=== PATIENT | male | born 1970 | race Caucasian/White ===

== ENCOUNTER 2018-08-24 10:03 | Outpatient (REF) | payer OTHER, SELFPAY ==
[2018-08-24 21:41] LABS: ALT 57 U/L (12-78); AST 23 U/L (15-37); Alkaline Phosphatase 58 U/L (46-116); Anion Gap 9.5 mmol/L (3-11); BUN 20 mg/dL (7-18); Bilirubin, Total 0.4 mg/dL (0.2-1.0); CO2 25.5 mmol/L (21.0-32.0); CREATININE 1.06 mg/dL (0.70-1.30); Calcium 9.3 mg/dL (8.5-10.1); Chloride 101 mmol/L (98-107); Cholesterol 187 mg/dL (50-200); Glucose 114 mg/dL (70-100); HDL Cholesterol 39 mg/dL (40-60); LDL CHOLESTEROL 124 mg/dL (<100); Potassium 5.1 mmol/L (3.5-5.1); Sodium 136 mmol/L (136-145); Total Protein 7.6 g/dL (6.4-8.2); Triglyceride 133 mg/dL (30-150)
== END 2018-08-24 10:23 ==
LOC: NCHCN 10:03
PROVIDERS: PCP Family Medicine; Visit Provider Physician Assistant Medical
DX: E78.5 Hyperlipidemia, unspecified (principal); I10 Essential (primary) hypertension
CPT/HCPCS: 80053; 80061; 83721

== ENCOUNTER 2018-11-23 16:04 | Outpatient (CLI) | payer OTHER, SELFPAY ==
[2018-11-23 16:54] LABS: Abs Immature Grans 0.02 k/cumm (0.0-0.09); Absolute Basophil Count 0.03 k/cumm (0.0-0.2); Absolute Eosinophil Count 0.17 k/cumm (0.0-0.7); Absolute Lymphocyte Count 1.87 k/cumm (1.2-3.4); Absolute Monocyte Count 0.46 k/cumm (0.11-0.7); Absolute Neutrophil Count 3.99 k/cumm (1.2-6.7); Basophils % 0.5; Eosinophils % 2.6; HCT 41.2 % (40.0-50.0); Immature Grans % 0.3; Lymphocytes % 28.6; Mean Corpuscular Volume 88.2 fL (80-95); Mean Platelet Volume 11.1 fL (8.0-11.0); Platelet Count 191 x1000/uL (130-400); RBC 4.67 m/cumm (4.50-6.00); RBC Distribution Width 13.4 % (11.8-14.1); White Blood Cell Count 6.54 k/cumm (4.4-10.8)
[2018-11-23 18:07] LABS: Anion Gap 8.6 mmol/L (3-11); BUN 22 mg/dL (7-18); CO2 27.4 mmol/L (21.0-32.0); CREATININE 1.18 mg/dL (0.70-1.30); Calcium 9.2 mg/dL (8.5-10.1); Chloride 100 mmol/L (98-107); Glucose 93 mg/dL (70-100); Potassium 4.4 mmol/L (3.5-5.1); Sodium 136 mmol/L (136-145)
== END 2018-11-23 16:24 ==
PROVIDERS: PCP Family Medicine; Visit Provider Physician Assistant Medical
DX: R73.01 Impaired fasting glucose (principal); I10 Essential (primary) hypertension
CPT/HCPCS: 36415; 80048; 83036; 83735; 85025

== ENCOUNTER 2019-11-16 15:14 | Outpatient (CLI) | payer OTHER, SELFPAY ==
[2019-11-16 15:39] LABS: Abs Immature Grans 0.02 k/cumm (0.0-0.09); Absolute Basophil Count 0.03 k/cumm (0.0-0.2); Absolute Eosinophil Count 0.15 k/cumm (0.0-0.7); Absolute Lymphocyte Count 2.09 k/cumm (1.2-3.4); Absolute Monocyte Count 0.52 k/cumm (0.11-0.7); Basophils % 0.5; Eosinophils % 2.3; HCT 40.5 % (40.0-50.0); Immature Grans % 0.3 %; Lymphocytes % 32.1; Mean Corp. HGB Concentration 34.6 g/dL (32.0-36.0); Mean Corpuscular Hemoglobin 30.6 pg (27.0-33.0); Mean Corpuscular Volume 88.4 fL (80-95); Mean Platelet Volume 10.2 fL (8.0-11.0); Neutrophils % 56.8; Platelet Count 242 x1000/uL (130-400); RBC 4.58 m/cumm (4.50-6.00); RBC Distribution Width 13.6 % (11.8-14.1); White Blood Cell Count 6.51 k/cumm (4.4-10.8)
[2019-11-16 17:54] LABS: ALT 49 U/L (16-63); AST 26 U/L (15-37); Albumin 4.1 g/dL (3.4-5.0); Alkaline Phosphatase 57 U/L (46-116); Bilirubin, Direct 0.08 mg/dL (0.00-0.20); Bilirubin, Total 0.3 mg/dL (0.2-1.0); Total Protein 7.3 g/dL (6.4-8.2)
== END 2019-11-16 15:34 ==
PROVIDERS: PCP Family Medicine; Visit Provider Podiatrist Foot & Ankle Surgery
DX: B35.1 Tinea unguium (principal)
CPT/HCPCS: 36415; 80076; 85025

== ENCOUNTER 2021-01-11 03:20 | Outpatient (CLI) | payer BC, SELFPAY ==
[2021-01-11 15:40] LABS: Abs Immature Grans 0.02 10^3/uL (0.0-0.06); Absolute Basophil Count 0.03 10^3/uL (0.0-0.2); Absolute Eosinophil Count 0.16 10^3/uL (0.0-0.7); Absolute Lymphocyte Count 2.15 10^3/uL (1.2-3.4); Absolute Neutrophil Count 4.14 10^3/uL (1.2-6.7); Basophils % 0.4; Eosinophils % 2.3; HCT 41.3 % (40.0-50.0); HGB 14.1 g/dL (13.5-17.5); Immature Grans % 0.3; Lymphocytes % 30.7; MCH 30.1 pg (27.0-33.0); MCHC 34.1 % (32.0-36.0); MCV 88.2 fL (80-95); MPV 10.5 fL (8.0-11.0); Monocytes % 7.1; Neutrophils % 59.2; Nucleated RBC 0 %; Platelet Count 225 10^3/uL (130-400); RBC 4.68 10^6/uL (4.36-5.78); RDW 12.7 % (11.8-14.1); RDW-SD 40.9 fL
[2021-01-11 16:28] LABS: Hemoglobin A1C 6.6 % (<5.7)
[2021-01-11 16:34] LABS: ALT 65 U/L (16-63); AST 22 U/L (15-37); Albumin 4.1 g/dL (3.4-5.0); Alkaline Phosphatase 62 U/L (46-116); Anion Gap 9.4 mmol/L (3-11); BUN 19 mg/dL (7-18); Bilirubin, Total 0.3 mg/dL (0.2-1.0); CO2 26.6 mmol/L (21.0-32.0); CREATININE 1.1 mg/dL (0.70-1.30); Calcium 8.7 mg/dL (8.5-10.1); Chloride 104 mmol/L (98-107); Cholesterol 213 mg/dL (<200); Glucose 135 mg/dL (74-106); HDL Cholesterol 29 mg/dL (40-60); Potassium 4.1 mmol/L (3.5-5.1); Sodium 140 mmol/L (136-145); Total Protein 7.3 g/dL (6.4-8.2); Triglyceride 569 mg/dL (<150)
[2021-01-11 21:31] LABS: LDL CHOLESTEROL 117 mg/dL (<100)
== END 2021-01-11 03:21 | disposition home or self-care (01) ==
LOC: LBO 03:20
PROVIDERS: PCP Physician Assistant Medical; Visit Provider Physician Assistant Medical
DX: Z00.00 Encounter for general adult medical examination without abnormal findings (principal); R73.01 Impaired fasting glucose; E78.5 Hyperlipidemia, unspecified; I10 Essential (primary) hypertension
CPT/HCPCS: 36415; 80053; 80061; 83721; 83036; 85025

== ENCOUNTER 2021-01-12 02:33 | Outpatient (CLI) | payer BC, SELFPAY ==
[2021-01-12 10:00] LABS: Source Nasal/Nares
[2021-01-12 16:48] LABS: COVID-19 PCR Negative (Negative)
== END 2021-01-12 02:34 | disposition home or self-care (01) ==
LOC: LBO 02:33
PROVIDERS: PCP Physician Assistant Medical; Visit Provider Surgery
DX: Z20.822 Contact with and (suspected) exposure to COVID-19 (principal); Z01.818 Encounter for other preprocedural examination
CPT/HCPCS: 87635

== ENCOUNTER 2021-01-15 10:01 | Day surgery (SDC) | payer BC, SELFPAY ==
--- NOTE | 2021-01-15 06:55 | COLE_ITS ---
Date of service: 01/15/21 Time of Service: 11:38 Colonoscopy Report Date of procedure: 01/15/21 Pre-op diagnosis general: Colon Cancer Screening Procedure: Colonoscopy Surgeon: Adalgisa Miller Anesthesia Type: General:No Airway (ASA /) Complications: None Disposition: same day Indications: The patient is here for Colonoscopy pre-op. He has no family history of colon cancer. He has not had any bowel habit changes. -Discussed colonoscopy bowel prep as well as the procedure. Discussed possible c omplications of the procedure to include bleeding, pain, perforation, missed small lesion/polyp, sore throat, aspiration and adverse reaction to the medications. Questions were answered to patient?s satisfaction. No guarantees were implied or given. Prep: Miralax/Dulcolax Procedure Start Time: :38 Procedure End Time: :53 Retraction Time: 10 minutes Findings: Normal colon Procedure Description: After informed consent was obtained the patient was taken to the procedure room and placed in a left decubitous position. Monitors were applied and a time out was done. The patients name, date of , procedure, allergies to medications and metal in their body was reviewed. The patient was then sedated. Once sedated and comfortable a rectal exam was done. External exam was normal. Internal exam revealed a normal sphincter tone and no palpable masses. The prostate felt smooth and normal in size. The scope was then introduced and retro-flexed. No internal hemorrhoids, polyps or masses were identified on retro-flexion. The scope was then advanced to the cecum without difficulty. The ileocecal vlave and appendiceal orifice were identified. The prep was adequate. The scope was then slowly retracted over 10 minutes back into the rectum. There were no polyps and no diverticulosis. The scope was removed and the patient was woken up and taken back to Same day surgery in stable condition. The patient tolerated the procedure well and there were no immediate complications. Follow up: The patient should follow up in 10 years unless they develop changes in bowel habits or other new gastrointestinal complaints.
--- NOTE | 2021-01-15 06:56 | W.PM.DSUDISC ---
Discharge Plan Disposition Patient Disposition: HOME Condition: Good Discharge Details Reason For Visit: Colonoscopy Attending Provider: Adalgisa Miller Primary Care Provider: Aime Rivas Home Meds and New Rx's Prescriptions: Continued lisinopril 20 mg tablet 20 mg PO DAILY RF: 0 ferrous gluconate 324 mg (36 mg iron) tablet 324 mg PO DAILY RF: 0 ibuprofen 800 mg tablet 800 mg PO TID RF: 0 acetaminophen 500 mg capsule 500 mg PO Q6H PRNRF: 0 terbinafine HCl 250 mg tablet 250 mg PO DAILY RF: 0 aspirin [Aspir-81] 81 MG tablet,delayed release (DR/EC) 81 mg PO DAILY RF: 0 simvastatin 40 MG tablet 40 mg PO DAILY RF: 0 Discontinued bisacodyl [Dulcolax (bisacodyl)] 5 mg tablet,delayed release (DR/EC) 5 mg PO ONCE Qty: 4 RF: 0 polyethylene glycol 3350 17 gram/dose powder 238 g PO ONCE Qty: 238 RF: 0 Discharge Instructions Additional Instructions: Findings: Normal colon Follow up: 10 years Please call if you develop: fevers >101.5 Nausea or Vomiting Abdominal pain that is not transient DAY SURGERY UNIT POST ENDOSCOPY INSTRUCTIONS 1. Because there will be medication in your system for the next 24 hours, you may feel a little sleepy. Your coordination will be affected. Therefore: a. Do not drive or operate dangerous equipment for 24 hours. b. Do not drink alcohol beverages for 24 hours (not even beer). c. Plan to go home and rest for the day. 2. Generally there are no restrictions on your activity after a day or so has gone by, but you may feel a bit fatigued for a few days. 3 After you arrive home you may have a light meal and return to a normal diet as you can tolerate it without feeling sick to your stomach. 4. After surgery, you may feel pain or discomfort. This should be only transient, but if it persists please contact your doctor. 5. If there are any questions regarding the findings of your procedure, please feel free to contact your doctor. 6. If you are unable to contact your doctor with a problem, contact the hospital at [phone]. 7. Continue all your regular medications unless directed otherwise. I understand the above instructions and have no questions. Signature of Patient or Responsible Adult Escort Date/Time Name of Responsible Adult Escort Signature of Nurse Date/Time Activity:: Activity as Tolerated Diet:: As Tolerated Discharge Orders Discharge Orders: Discharge Order (Routine); Ordered 01/15/21 Ordered By: Adalgisa Miller
[2021-01-15 10:10] VITALS: BP 151/88; PULSE 93; RESP 18; TEMP 36.2; O2SAT 98
[2021-01-15] MEDS: Lactated Ringers 1,000 ML 80 ML IV (10:32)
[2021-01-15 12:29] VITALS: BP 112/71; PULSE 78; RESP 16; TEMP 36.5; O2SAT 96
== END 2021-01-15 12:55 | disposition home or self-care (01) ==
LOC: SUR 10:01
PROVIDERS: PCP Physician Assistant Medical; Visit Provider Surgery
PROC: 0DJD8ZZ Inspection of Lower Intestinal Tract, Via Natural or Artificial Opening Endoscopic (ICD-10-PCS; CPT 45378; principal; 2021-01-15 11:15)
DX: Z12.11 Encounter for screening for malignant neoplasm of colon (principal); I10 Essential (primary) hypertension
CPT/HCPCS: 45378; J1100; J2001; J2405; J2704

== ENCOUNTER 2021-10-09 11:19 | Outpatient (CLI) | payer BC, OTHER, SELFPAY ==
--- NOTE | 2021-10-09 | DI.RAD_ITS ---
Exam(s) XR ANKLE RT COMPLETE EXAM: XR ANKLE RT COMPLETE CLINICAL HISTORY: ANKLE PAIN RT, M25.571 TECHNIQUE: COMPARISON: No exams were available for comparison FINDINGS: Three views were obtained. The ankle mortise is well maintained. No significant bony or soft tissue abnormality seen. IMPRESSION: RADIATION DOSE DELIVERED: Total DLP
== END 2021-10-09 11:39 ==
PROVIDERS: PCP Physician Assistant Medical; Visit Provider Physician Assistant Medical
DX: M25.571 Pain in right ankle and joints of right foot (principal)
CPT/HCPCS: 73610

== ENCOUNTER 2022-06-05 16:56 | Outpatient (REF) | payer OTHER, SELFPAY ==
[2022-06-05 20:38] LABS: ALT 92 U/L (16-63); AST 39 U/L (15-37); Albumin 4.2 g/dL (3.4-5.0); Alkaline Phosphatase 59 U/L (46-116); Anion Gap 12.3 mmol/L (3-11); BUN 17 mg/dL (7-18); Bilirubin, Total 0.4 mg/dL (0.2-1.0); CO2 24.7 mmol/L (21.0-32.0); Calcium 9.3 mg/dL (8.5-10.1); Chloride 101 mmol/L (98-107); Cholesterol 199 mg/dL (<200); Glucose 112 mg/dL (74-106); HDL Cholesterol 27 mg/dL (40-60); Potassium 4.2 mmol/L (3.5-5.1); Sodium 138 mmol/L (136-145); TSH (W/Ref FT4) 1.73 uIU/mL (0.36-3.74); Total Protein 8.3 g/dL (6.4-8.2); Triglyceride 401 mg/dL (<150)
[2022-06-05 21:08] LABS: LDL CHOLESTEROL 108 mg/dL (<100)
[2022-06-05 21:49] LABS: Hemoglobin A1C 7.1 % (<5.7)
[2022-06-06 20:31] LABS: PSA, Screening 0.2 ng/mL (<=3.5)
== END 2022-06-05 16:57 | disposition home or self-care (01) ==
LOC: NCHCN 16:56
PROVIDERS: PCP Physician Assistant Medical; Visit Provider Physician Assistant Medical
DX: E11.9 Type 2 diabetes mellitus without complications (principal); Z00.00 Encounter for general adult medical examination without abnormal findings; E66.9 Obesity, unspecified; Z12.5 Encounter for screening for malignant neoplasm of prostate; E78.5 Hyperlipidemia, unspecified; I10 Essential (primary) hypertension
CPT/HCPCS: 80053; 80061; 83721; 84153; 83036; 84443

== ENCOUNTER 2022-11-20 16:37 | Outpatient (REF) | payer OTHER, SELFPAY ==
[2022-11-20 20:12] LABS: HCT 43.8 % (40.0-50.0); HGB 14.7 g/dL (13.5-17.5); MCH 29.5 pg (27.0-33.0); MCHC 33.6 % (32.0-36.0); MCV 88 fL (80-95); MPV 10.7 fL (8.0-11.0); Platelet Count 239 10^3/uL (130-400); RBC 4.99 10^6/uL (4.36-5.78); RDW 13.2 % (11.8-14.1); RDW-SD 42.6 fL; WBC 6.62 10^3/uL (4.4-10.8)
[2022-11-20 20:18] LABS: ALT 65 U/L (16-63); AST 36 U/L (15-37); Albumin 4.3 g/dL (3.4-5.0); Alkaline Phosphatase 61 U/L (46-116); Anion Gap 9.8 mmol/L (3-11); BUN 13 mg/dL (7-18); Bilirubin, Total 0.5 mg/dL (0.2-1.0); CO2 26.2 mmol/L (21.0-32.0); Calcium 9.4 mg/dL (8.5-10.1); Chloride 102 mmol/L (98-107); Estimated GFR 90.56 (mL/min/1.73m2); Glucose 101 mg/dL (74-106); Potassium 4.3 mmol/L (3.5-5.1); Sodium 138 mmol/L (136-145); Total Protein 7.9 g/dL (6.4-8.2)
[2022-11-20 20:39] LABS: Hemoglobin A1C 5.9 % (<5.7)
== END 2022-11-20 16:38 | disposition home or self-care (01) ==
LOC: NCHCN 16:37
PROVIDERS: PCP Physician Assistant Medical; Visit Provider Physician Assistant Medical
DX: E11.9 Type 2 diabetes mellitus without complications (principal); R79.89 Other specified abnormal findings of blood chemistry
CPT/HCPCS: 80053; 85027; 83036

== ENCOUNTER 2023-01-12 09:43 | Emergency (ER) | payer OTHER, SELFPAY ==
[2023-01-12 09:51] VITALS: BP 163/97; PULSE 92; RESP 18; TEMP 37.2; O2SAT 98
--- NOTE | 2023-01-12 10:00 | DI.RAD_ITS ---
Exam(s) XR KNEE LT 4V AP,LAT,LUCILA,PAT EXAM: XR KNEE LT 4V AP,LAT,LUCILA,PAT CLINICAL HISTORY: hit anterior knee with piece of wood, r/o fx. TECHNIQUE: 2D digital imaging was performed. COMPARISON: No exams were available for comparison FINDINGS: Four views: There is mild anterior soft tissue swelling. No evidence of acute fracture but there is a joint effusion noted. No osseous lesions nor joint spac e narrowing. No osteochondral defects. Minimal degenerative changes. No radiopaque foreign body. IMPRESSION: Mild anterior soft tissue swelling. No significant osseous findings. DATA REPOSITORY: RADIATION DOSE DELIVERED:
--- NOTE | 2023-01-12 10:14 | W.ED.GENAD ---
Discharge Plan Disposition Patient Disposition: Home Condition: Stable Discharge Details Clinical Impression: Contusion of left knee Primary Care Provider: Aime Rivas ED Provider: Chloe Munguia Home Meds and New Rx's Prescriptions: Continued metformin 500 mg tablet 500 mg PO DAILY lisinopril 20 mg tablet 20 mg PO DAILY Patient Comments: not taking ibuprofen 800 mg tablet 800 mg PO TID acetaminophen 500 mg capsule 500 mg PO Q6H PRN terbinafine HCl 250 mg tablet 250 mg PO DAILY Patient Comments: not taking Alive Men's 50 Plus MV (vit K) 240-120-300 mcg tablet 1 tab PO DAILY ferrous gluconate 225 mg (27 mg iron) tablet 225 mg PO DAILY Patient Comments: not taking losartan [Cozaar] 25 mg tablet 25 mg PO DAILY benzonatate 100 mg capsule 100 mg PO BID-TID PRN Patient Comments: not taking Ozempic 0.25 mg or 0.5 mg(2 mg/1.5 mL) pen injector 0.5 mg subcut QWEEK aspirin [Aspir-81] 81 MG tablet,delayed release (DR/EC) 81 mg PO DAILY simvastatin 40 MG tablet 40 mg PO DAILY Discharge Instructions Instructions: Contusion in Adults (ED) Additional Instructions: Your x-ray today showed soft tissue swelling but no evidence of fracture or dislocation. Rest, ice, and elevate the affected area as much as possible. Apply ice to the affected area several times daily for 20 minutes at a time. Wear the Evangelist wrap as much as possible to help with compression and pain. Alternate tylenol and motrin as needed and directed for pain. Follow-up with your primary care doctor in 1 week as needed and for referral to orthopedics if your symptoms do not improve or worsen. Return immediately to the emergency department if you develop any worsening or new concerning symptoms. Stand Alone Forms: Work Release Referrals: Orlin Moreira MD [ [facility]FF PHYSICIAN] - Discharge Data Discharge Physician: Chloe Munguia Medical Decision Making 52-year-old male with a history of obesity, hypertension, hyperlipidemia, diabetes and obstructive sleep apnea presents the ED with a complaint of left knee pain after hit directly with a piece of wood to his left anterior knee yesterday while standing. Left knee appears normal to inspection without obvious edema, ecchymosis, erythema or deformity. He has some tenderness to palpation to his left anterior medial inferior knee overlying medial proximal tibia. There is no obvious ligamentous laxity. He has neurovascular intact. Will refer for left knee x-ray. Declines Tylenol here. X-ray notes anterior soft tissue swelling but no evidence of fracture or dislocation. Patient requested a work note. Left knee Evangelist wrap applied. Advised on the importance of rest, ice and elevation. Given orthopedic follow-up information if needed. Usual and customary return precautions given prior to discharge. Medical Records Medical records reviewed: Yes I reviewed the patient's medical records. Imaging Data Radiologic Study: Radiologist's impression: XR Left Knee Exam date and time: 01/12/2023 10:43 AM Age: 52 years old Clinical indication: Injury or trauma; Other: Hit anterior knee with piece of wood, R/O FX; Blunt trauma; Left TECHNIQUE: Imaging protocol: Radiologic exam of the left knee. Views: 4 or more views. AP, tunnel and lateral images with supplemental patellar femoral image of the left knee. COMPARISON: No relevant prior studies available. FINDINGS: Bones/joints: The bones are well mineralized. Examination negative for fracture or dislocation. Tiny spurs in the lateral portion of the medial compartment. Soft tissues: Mild anterior soft tissue swelling. No joint effusion. IMPRESSION: Nonspecific anterior soft tissue swelling.? No fracture or dislocation. HPI General Mode of arrival: ambulatory. Date/Time Provider Initiated Documentation: 01/12/23 09:59. Limitations to Documentation: no limitations. Information obtained by: patient. HPI Narrative: Patient is a 52-year-old male with a history of obesity, hypertension, hyperlipidemia, diabetes, obstructive sleep apnea who presents for complaints of left knee pain after hit with a piece of wood accidentally yesterday. Patient states a 4 x 4 piece of wood that was hit directly against his left anterior knee while standing. Patient states the pain is worse with walking or weightbearing. Patient took 800 mg of ibuprofen 2 hours ago with some relief. He denies any pain in his left hip, ankle or foot. Related Data Home Medications Medication Instructions Recorded Confirmed aspirin 81 mg tablet,delayed 81 mg PO DAILY 09/01/14 01/12/23 release (Aspir-) simvastatin 40 mg tablet 40 mg PO DAILY 09/01/14 01/12/23 acetaminophen 500 mg capsule 500 mg PO Q6H PRN 07/06/20 01/12/23 ibuprofen 800 mg tablet 800 mg PO TID 07/06/20 01/12/23 lisinopril 20 mg tablet 20 mg PO DAILY 07/06/20 05/30/22 terbinafine HCl 250 mg tablet 250 mg PO DAILY 12/01/20 05/30/22 metformin 500 mg tablet 500 mg PO DAILY 07/24/21 01/12/23 benzonatate 100 mg capsule 100 mg PO BID-TID PRN 06/28/22 ferrous gluconate 225 mg (27 mg 225 mg PO DAILY 06/28/22 iron) tablet losartan 25 mg tablet (Cozaar) 25 mg PO DAILY 06/28/22 01/12/23 podbvcbf-husx-gejwz acid 240 1 tab PO DAILY 06/28/22 01/12/23 mcg-vit K 120 zdb-bxrzln-tllm 293 tablet (Alive Men's 50 Plus Multivit (vit K)) semaglutide 0.25 mg or 0.5 mg (2 0.5 mg subcut QWEEK 06/28/22 01/12/23 mg/1.5 mL) subcutaneous pen injector (Ozempic) Allergies Allergy/AdvReac Type Severity Reaction Status Date / Time No Known Allergies Allergy Unverified 01/12/23 09:55 General Stated Complaint: Orthopedic TEE: 4 Review of Systems All systems reviewed & are unremarkable except as noted in HPI and below Constitutional Constitutional: Reports as per HPI, Denies chills and Denies fever(s) Eyes Eyes: Denies blurry vision ENT Ears, Nose, Mouth, and Throat: Denies dizziness, Denies sore throat and Denies throat swelling Cardiovascular Cardiovascular: Denies chest pain and Denies dyspnea Respiratory Respiratory: Denies cough and Denies dyspnea Gastrointestinal Gastrointestinal: Denies abdominal pain, Denies diarrhea and Denies vomiting Genitourinary Genitourinary: Denies hematuria and Denies dysuria Musculoskeletal Musculoskeletal: Denies back pain and Denies numbness Comments: left knee pain Integumentary/Breasts Skin/Breast: Denies lesions and Denies rash Neurologic Neurologic: Denies dizziness, Denies localized weakness and Denies numbness Allergic/Immunologic Allergic/Immunologic: Denies throat swelling PFSH All Active Problems (Updated 01/12/23 @ 11:25 by Chloe Munguia DO) Contusion of left knee (Acute) COVID-19 (Acute) Skin tag (Acute) Medical History Cutaneous horn Hyperhidrosis Hyperlipidemia Hypertension Impaired fasting glucose ALEA (obstructive sleep apnea) Surgical History History of arthroscopic knee surgery Normal colonoscopy (~01/2021) Social History Smoking/Tobacco Use Status: Never Smoking risk assessment performed?: Yes Alcohol Intake: current Alcohol Intake frequency: a few times a week Alcohol type: beer Drug use: Never Substance use type: does not use Current gender identity: male Do you feel safe at home: Yes Do you feel safe in your relationship?: Yes Exam Const General: cooperative and no acute distress Orientation: alert, awake and oriented x3 HENMT Head: normal to inspection Mouth: oral mucosae normal Eyes General: appearance normal, both eyes and all related structures Neck Neck: normal visual inspection Resp Effort & Inspection: normal respiratory effort and able to speak in complete sentences Cardio Rate: regular rate Skin General skin exam: no rashes or lesions noted Neuro General: patient alert, patient awake and patient oriented x3 Motor: muscle tone normal throughout Extrem Knee images: 1. Tenderness to palpation to anterior medial knee just inferior to patella/medial proximal tibial aspect. There is no evidence of significant edema, ecchymosis. Other: Negative anterior and posterior drawer test. No pain with valgus or varus stress. Negative Darrel's test. No deformity noted. Left DP/PT pulses intact. Psych Appearance: grossly normal Affect: normal affect Course Vital Signs Vital signs: Vital Signs Temperature 98.9 F 01/12/23 09:51 Pulse 92 H 01/12/23 09:51 Respiratory Rate 18 01/12/23 09:51 Blood Pressure 163/97 H 01/12/23 09:51 Pulse Oximetry 98 01/12/23 09:51 Temperature 98.9 F 01/12/23 09:51 Temperature Source Rectal 01/12/23 09:51 Pulse 92 H 01/12/23 09:51 Respiratory Rate 18 01/12/23 09:51 Respiratory Effort Normal, Non-Labored 01/12/23 09:55 Blood Pressure 163/97 H 01/12/23 09:51 Blood Pressure Position Sitting 01/12/23 09:51 Pulse Oximetry 98 01/12/23 09:51 Oxygen Delivery Method Room Air 01/12/23 09:51 Oxygen Flow Rate 0 01/12/23 09:51 PAWSS Have you Been Recently Intoxicated or Drunk Within the Last 30 days?: No Have you Ever Experienced Previous Episodes of Alcohol Withdrawal?: No Have you ever Experienced Withdrawal Seizures?: No Have you ever Experienced Delirium Tremens(DT)s?: No Have you ever undergone Alcohol Rehabilitation Treatment (i.e, inpt ot outpatient treatment programs)?: No Have you ever Experienced Blackouts?: No Have you ever Combined Alcohol with other Downers within the last 90 days?: No Have you ever Combined Alcohol with any other Substance of Abuse during the last 90 days?: No Positive Blood Alcohol level on Presentation? [PCS.BAL]: No Evidence of Increased Autonomic Activity (i.e. HR>120, tremor, sweating, agitation, nausea)?: No Result: 0
--- NOTE | 2023-01-12 10:52 | DI.VRAD_ITS ---
PROCEDURE INFORMATION: Exam: XR Left Knee Exam date and time: 01/12/2023 10:43 AM Age: 52 years old Clinical indication: Injury or trauma; Other: Hit anterior knee with piece of wood, R/O FX; Blunt trauma; Left TECHNIQUE: Imaging protocol: Radiologic exam of the left knee. Views: 4 or more views. AP, tunnel and lateral images with supplemental patellar femoral image of the left knee. COMPARISON: No relevant prior studies available. FINDINGS: Bones/joints: The bones are well mineralized. Examination negative for fracture or dislocation. Tiny spurs in the lateral portion of the medial compartment. Soft tissues: Mild anterior soft tissue swelling. No joint effusion. IMPRESSION: Nonspecific anterior soft tissue swelling. No fracture or dislocation. Dictated and Authenticated by: Miky Perez MD. Ordering:TREY Corona MD
== END 2023-01-12 11:45 | disposition home or self-care (01) ==
PROVIDERS: Emergency Provider Physician Assistant; PCP Physician Assistant Medical
DX: S80.02XA Contusion of left knee, initial encounter (principal); I10 Essential (primary) hypertension; E11.9 Type 2 diabetes mellitus without complications; Z79.84 Long term (current) use of oral hypoglycemic drugs; Z79.82 Long term (current) use of aspirin; W22.09XA Striking against other stationary object, initial encounter
CPT/HCPCS: 99283; 73564

== ENCOUNTER 2023-01-13 07:19 | Emergency (ER) | payer OTHER, SELFPAY ==
[2023-01-13 07:23] VITALS: BP 156/100; PULSE 83; RESP 18; TEMP 37.1; O2SAT 97
--- NOTE | 2023-01-13 08:13 | W.ED.GENAD ---
Discharge Plan Disposition Patient Disposition: Home Condition: Stable Discharge Details Clinical Impression: Injury of knee, left, Popping of left knee joint Primary Care Provider: Aime Rivas ED Provider: Kelvin Jaimes Home Meds and New Rx's Prescriptions: Continued metformin 500 mg tablet 500 mg PO DAILY ibuprofen 800 mg tablet 800 mg PO TID Alive Men's 50 Plus MV (vit K) 240-120-300 mcg tablet 1 tab PO DAILY losartan [Cozaar] 25 mg tablet 25 mg PO DAILY Ozempic 0.25 mg or 0.5 mg(2 mg/1.5 mL) pen injector 0.5 mg subcut QWEEK aspirin [Aspir-81] 81 MG tablet,delayed release (DR/EC) 81 mg PO DAILY simvastatin 40 MG tablet 40 mg PO DAILY Discontinued lisinopril 20 mg tablet 20 mg PO DAILY Patient Comments: not taking terbinafine HCl 250 mg tablet 250 mg PO DAILY Patient Comments: not taking benzonatate 100 mg capsule 100 mg PO BID-TID PRN Patient Comments: not taking No Action acetaminophen 500 mg capsule 500 mg PO Q6H PRN ferrous gluconate 225 mg (27 mg iron) tablet 225 mg PO DAILY Patient Comments: not taking Discharge Instructions Instructions: Knee Immobilizer (ED) Additional Instructions: Please follow-up with orthopedics. Rest and try to stay off your knee for the next few days. Use knee immobilizer and crutches over the next week. Continue to use if pain persist. Return to the ER immediately for any worsening or new concerning symptoms. Referrals: [facility] [Provider Group] Aime Rivas PA [Primary Care Provider] - Medical Decision Making 52-year-old male with a history of obesity, hypertension, hyperlipidemia, diabetes and obstructive sleep apnea presents the ED with a left knee pain after popping sensation posterior knee while descending stairs having been hit directly with a piece of wood to his left anterior knee 2 days ago while standing. Patient was seen here yesterday in the [facility] apartment had x-ray that showed nonspecific anterior soft tissue swelling with no joint effusion. I do not appreciate sag sign or ligamentous instability but do worry about potential PCL injury given mechanism and presentation. I will apply knee immobilizer and continue crutches and plan for him to follow-up with orthopedics. HPI General Mode of arrival: ambulatory. Date/Time Provider Initiated Documentation: 01/13/23 07:46. Limitations to Documentation: no limitations. Information obtained by: patient. HPI Narrative: 52-year-old male presents 2 days post knee injury with chief complaint of sensation of popping going downstairs posterior knee and now pain posterior knee. Patient notes a piece of wood hit his anterior knee on Friday. He continued to work that day without much discomfort until hours later. He was seen here in the [facility] yesterday and had x-rays that showed knee effusion. He was provided Evangelist wrap and crutches. He notes has been taking ibuprofen and Tylenol. His knee was feeling better this morning until he was attempting to go downstairs when he experienced a popping sensation in his posterior knee. He now continues to have pain on palpation and with weightbearing posterior knee. Related Data Home Medications Medication Instructions Recorded Confirmed aspirin 81 mg tablet,delayed 81 mg PO DAILY 09/01/14 01/13/23 release (Aspir-) simvastatin 40 mg tablet 40 mg PO DAILY 09/01/14 01/13/23 acetaminophen 500 mg capsule 500 mg PO Q6H PRN 07/06/20 01/13/23 ibuprofen 800 mg tablet 800 mg PO TID 07/06/20 01/13/23 metformin 500 mg tablet 500 mg PO DAILY 07/24/21 01/13/23 ferrous gluconate 225 mg (27 mg 225 mg PO DAILY 06/28/22 iron) tablet losartan 25 mg tablet (Cozaar) 25 mg PO DAILY 06/28/22 01/13/23 mlyfokib-jfcw-rissq acid 240 1 tab PO DAILY 06/28/22 01/12/23 mcg-vit K 120 jat-jrweol-nepk 293 tablet (Alive Men's 50 Plus Multivit (vit K)) semaglutide 0.25 mg or 0.5 mg (2 0.5 mg subcut QWEEK 06/28/22 01/13/23 mg/1.5 mL) subcutaneous pen injector (Ozempic) Allergies Allergy/AdvReac Type Severity Reaction Status Date / Time No Known Allergies Allergy Unverified 01/13/23 07:23 General Stated Complaint: Orthopedic TEE: 4 Review of Systems Musculoskeletal Musculoskeletal: Reports as per HPI and Denies numbness Neurologic Neurologic: Denies localized weakness and Denies numbness PFSH All Active Problems (Updated 01/13/23 @ 08:25 by Kelvin Jaimes MD) Contusion of left knee (Acute) Injury of knee, left (Acute) Popping of left knee joint (Acute) COVID-19 (Acute) Skin tag (Acute) Medical History Cutaneous horn Hyperhidrosis Hyperlipidemia Hypertension Impaired fasting glucose ALEA (obstructive sleep apnea) Surgical History History of arthroscopic knee surgery Normal colonoscopy (~01/2021) Social History Smoking/Tobacco Use Status: Never Smoking risk assessment performed?: Yes Alcohol Intake: current Alcohol Intake frequency: a few times a week Alcohol type: beer Drug use: Never Substance use type: does not use Current gender identity: male Do you feel safe at home: Yes Do you feel safe in your relationship?: Yes Exam Const General: cooperative and no acute distress HENMT Mouth: moist mucous membranes Cardio Rate: regular rate and not tachycardic Rhythm: regular rhythm Neuro General: patient alert, patient awake and tone normal Extrem General: no edema Left lower extremity: hip/thigh Details: normal to inspection; no tenderness and no swelling, knee Details: tenderness (ttp posterior inferior knee ) Location: not of the patella, not of the tibial tuberosity, not of the medial joint line and not of the lateral joint line, normal ROM and knee ligament exam normal; no ecchymosis, no crepitus, no deformity and no unusual warmth, lower leg Details: no edema and other (Achilles tendon intact); no tenderness and no ecchymosis and foot Details: vascular exam Details: dorsalis pedis pulse present and motor-sensory exam Details: light-touch normal Course Vital Signs Vital signs: Vital Signs Temperature 37.1 C 01/13/23 07:23 Pulse 83 01/13/23 07:23 Respiratory Rate 18 01/13/23 07:23 Blood Pressure 156/100 H 01/13/23 07:23 Pulse Oximetry 97 01/13/23 07:23 Temperature 37.1 C 01/13/23 07:23 Temperature Source Oral 01/13/23 07:23 Pulse 83 01/13/23 07:23 Respiratory Rate 18 01/13/23 07:23 Respiratory Effort Normal, Non-Labored 01/13/23 07:22 Blood Pressure 156/100 H 01/13/23 07:23 Pulse Oximetry 97 01/13/23 07:23 Oxygen Delivery Method Room Air 01/13/23 07:23 Oxygen Flow Rate 0 01/13/23 07:23 PAWSS Have you Been Recently Intoxicated or Drunk Within the Last 30 days?: No Have you Ever Experienced Previous Episodes of Alcohol Withdrawal?: No Have you ever Experienced Withdrawal Seizures?: No Have you ever Experienced Delirium Tremens(DT)s?: No Have you ever undergone Alcohol Rehabilitation Treatment (i.e, inpt ot outpatient treatment programs)?: No Have you ever Experienced Blackouts?: No Have you ever Combined Alcohol with other Downers within the last 90 days?: No Have you ever Combined Alcohol with any other Substance of Abuse during the last 90 days?: No Positive Blood Alcohol level on Presentation? [PCS.BAL]: No Evidence of Increased Autonomic Activity (i.e. HR>120, tremor, sweating, agitation, nausea)?: No Result: 0
== END 2023-01-13 08:41 | disposition home or self-care (01) ==
PROVIDERS: Emergency Provider Student in an Organized Health Care Education/Training Program; PCP Physician Assistant Medical
DX: S89.82XA Other specified injuries of left lower leg, initial encounter (principal); X58.XXXA Exposure to other specified factors, initial encounter
CPT/HCPCS: 29505; 99283

== ENCOUNTER 2023-06-10 18:05 | Outpatient (REF) | payer OTHER, SELFPAY ==
[2023-06-10 19:31] LABS: Hemoglobin A1C 5.9 % (<5.7)
[2023-06-10 19:32] LABS: ALT 59 U/L (16-63); AST 29 U/L (15-37); Alkaline Phosphatase 59 U/L (46-116); Anion Gap 7.2 mmol/L (3-11); BUN 19 mg/dL (7-18); Bilirubin, Total 0.4 mg/dL (0.2-1.0); CO2 25.8 mmol/L (21.0-32.0); Calcium 8.7 mg/dL (8.5-10.1); Calculated LDL 98 mg/dL (<100); Chloride 102 mmol/L (98-107); Cholesterol 191 mg/dL (<200); Glucose 112 mg/dL (74-106); HDL Cholesterol 33 mg/dL (40-60); Sodium 135 mmol/L (136-145); Total Protein 7.7 g/dL (6.4-8.2); Triglyceride 301 mg/dL (<150)
== END 2023-06-10 18:06 | disposition home or self-care (01) ==
LOC: NCHCN 18:05
PROVIDERS: PCP Physician Assistant Medical; Visit Provider Physician Assistant Medical
DX: Z00.00 Encounter for general adult medical examination without abnormal findings (principal); E11.9 Type 2 diabetes mellitus without complications; E78.5 Hyperlipidemia, unspecified
CPT/HCPCS: 80053; 80061; 83036

== ENCOUNTER → 2023-07-02 01:52 | Outpatient (CLI) | payer OTHER, SELFPAY ==
--- NOTE | 2023-07-02 08:05 | DI.MRI_ITS ---
Exam(s) MR LOWER JOINT LT WO EXAM: MR LOWER JOINT LT WO CLINICAL HISTORY: LT KNEE PAIN, M25.562. TECHNIQUE: Multiplanar multisequence MRI was performed. COMPARISON: CR,XR XR KNEE LT 4V AP,LAT,LUCILA,PAT from 01/12/2023 FINDINGS: BONES: There is no fracture or contusion pattern. Mild edema in the medial femoral condyle and medi al tibial plateau likely degenerative. A small spurs at the medial femoral condyle and medial tibial plateau. JOINTS: A moderate-sized joint effusion is present. Articular cartilage: Patellofemoral joint: Minimal focal cartilage defect at patellar apex. Medial femoral tibial joint: Articular cartilage is irregular and thinned, extending down to involvi ng underlying bone.. Lateral femoral tibial joint: Articular cartilage is unremarkable. TENDONS: Extensor mechanism: Unremarkable. Medial retinaculum: Unremarkable. Lateral retinaculum: Unremarkable. Popliteus: Unremarkable. MUSCLES: Unremarkable. MENISCI: The medial meniscus is peripherally displaced. There are degenerative increased intersubsta nce signal changes in the body and posterior horn. Growth isn't apparent on arm radially oriented me niscal root tear.. The lateral meniscus is unremarkable. SOFT TISSUES: Damon's cyst 2.5 by 3 by 5 cm. Anterior subcutaneous edema. LIGAMENTS: Anterior Cruciate: Unremarkable. Posterior Cruciate: Unremarkable. Medial Collateral:Surrounding fluid but no visible focal tear. Lateral Collateral: Unremarkable. IMPRESSION: Tear of the root of the posterior horn of the medial meniscus. Underlying degenerative changes of th e meniscus. Degenerative changes of the medial femoral tibial joint space with cartilage thinning extending down to bone. Damon cyst. DATA REPOSITORY:
== END ==
PROVIDERS: PCP Physician Assistant Medical; Visit Provider Physician Assistant Medical
DX: M23.222 Derangement of posterior horn of medial meniscus due to old tear or injury, left knee (principal)
CPT/HCPCS: 73721

== ENCOUNTER 2024-03-10 18:31 | Outpatient (REF) | payer OTHER, SELFPAY ==
[2024-03-10 20:45] LABS: Hemoglobin A1C 5.9 % (<5.7)
[2024-03-10 20:47] LABS: ALT 59 U/L (16-63); AST 29 U/L (15-37); Albumin 4.1 g/dL (3.4-5.0); Alkaline Phosphatase 58 U/L (46-116); Anion Gap 9.1 mmol/L (3-11); BUN 16 mg/dL (7-18); Bilirubin, Total 0.4 mg/dL (0.2-1.0); CO2 24.9 mmol/L (21.0-32.0); CREATININE 1.1 mg/dL (0.70-1.30); Calcium 8.8 mg/dL (8.5-10.1); Calculated LDL 101 mg/dL (<100); Chloride 104 mmol/L (98-107); Cholesterol 205 mg/dL (<200); Estimated GFR 79.77 (mL/min/1.73m2); Glucose 110 mg/dL (74-106); HDL Cholesterol 40 mg/dL (40-60); Sodium 138 mmol/L (136-145); Total Protein 7.8 g/dL (6.4-8.2); Triglyceride 323 mg/dL (<150)
== END 2024-03-10 18:32 | disposition home or self-care (01) ==
LOC: NCHCN 18:31
PROVIDERS: PCP Physician Assistant Medical; Visit Provider Physician Assistant Medical
DX: E78.5 Hyperlipidemia, unspecified (principal); E11.9 Type 2 diabetes mellitus without complications
CPT/HCPCS: 80053; 80061; 83036

== ENCOUNTER 2024-11-29 11:11 | Outpatient (CLI) | payer BC, SELFPAY ==
--- NOTE | 2024-11-29 11:20 | DI.RAD_ITS ---
Exam(s) XR CHEST 2V PA LATERAL EXAM: XR CHEST 2V PA LATERAL CLINICAL HISTORY: Cough R05.9 TECHNIQUE: 2D digital imaging was performed of the chest. Three images were obtained. PA and later al views were obtained. COMPARISON: There are no priors for comparison. FINDINGS: MEDIASTINUM: Normal. HEART: Normal. PULMONARY VASCULATURE: Normal. LUNGS: Clear. PLEURAL SPACE: No pleural effusion or pneumothorax. BONE:Within normal limits for the patient's age. OTHER FINDINGS:Normal. IMPRESSION: No acute pulmonary findings. DATA REPOSITORY: RADIATION DOSE DELIVERED:
== END 2024-11-29 11:31 ==
LOC: DI 11:15
PROVIDERS: PCP Physician Assistant Medical; Visit Provider Physician Assistant Medical
DX: R05.9 Cough, unspecified (principal)
CPT/HCPCS: 71046

== ENCOUNTER 2025-06-06 16:11 | Outpatient (REF) | payer BC, SELFPAY ==
[2025-06-06 19:08] LABS: ALT 38 U/L (16-63); AST 23 U/L (15-37); Albumin 4.0 g/dL (3.4-5.0); Alkaline Phosphatase 61 U/L (46-116); Anion Gap 6.3 mmol/L (3-11); BUN 18 mg/dL (7-18); Bilirubin, Total 0.6 mg/dL (0.2-1.0); CO2 28.7 mmol/L (21.0-32.0); Calcium 8.6 mg/dL (8.5-10.1); Calculated LDL 95 mg/dL (<100); Chloride 103 mmol/L (98-107); Cholesterol 188 mg/dL (<200); Estimated GFR 79.28 (mL/min/1.73m2); Glucose 119 mg/dL (74-106); HDL Cholesterol 31 mg/dL (>or=40); Potassium 4.3 mmol/L (3.5-5.1); Sodium 138 mmol/L (136-145); Total Protein 7.4 g/dL (6.4-8.2); Triglyceride 310 mg/dL (<150)
[2025-06-06 19:11] LABS: Hemoglobin A1C 5.5 % (<5.7)
== END 2025-06-06 16:12 | disposition home or self-care (01) ==
LOC: NCHCN 16:11
PROVIDERS: PCP Physician Assistant Medical; Visit Provider Physician Assistant Medical
DX: E78.5 Hyperlipidemia, unspecified (principal); E11.9 Type 2 diabetes mellitus without complications
CPT/HCPCS: 80053; 80061; 83036